=== PATIENT | female | born 1950 | race Caucasian/White ===

== ENCOUNTER 2017-11-26 18:50 | Inpatient (IN) | payer OTHER ==
[~2017-11-26] VITALS: Ht 157.5 cm; Wt 74.8 kg
[~2017-11-26 18:50] MED LIST: COZ50 PO; LOP50 PO; LOPRESSOR50 MG PO; MOTRIN800 MG PO; NOR5 PO; PRILOSEC20 MG PO; THERAGRAN-M1 TA4 PO
[2017-11-26 18:56] VITALS: Ht 157.5 cm; Wt 74.8 kg
[2017-11-26 20:33] LABS: BASOPHIL % 0.3 % (0-2); PLATELET COUNT 217 x10^3mcL (130-400); RED CELL DISTRIBUTION WIDTH 12.8 % (11.5-14.5)
[2017-11-26 20:40] LABS: CALCIUM 8.6 mg/dL (8.5-10.1); CARBON DIOXIDE 28.2 mmol/L (21-32); CHLORIDE SERUM 106 mmol/L (98-107); GLUCOSE SERUM 119 mg/dL (74-106); POTASSIUM SERUM 3.5 mmol/L (3.5-5.1); SODIUM SERUM 141 mmol/L (136-145)
[2017-11-26 20:44] LABS: ALKALINE PHOSPHATASE 68 U/L (46-116); ALT/SGPT 26 U/L (14-59); AST/SGOT 24 U/L (15-37); TOTAL PROTEIN, SERUM 6.7 g/dL (6.4-8.2)
[2017-11-26 20:50] LABS: ALBUMIN 3.3 g/dL (3.4-5.0)
[2017-11-26 21:18] LABS: CREATININE SERUM 0.7 mg/dL (0.6-1.0); GFR1 > 60 mL/min
[2017-11-26] MEDS ORDERED: LOSARTAN POTASS25 M1 PO (23:52)
[2017-11-26] MEDS ORDERED: METOPROLOL SUCC50 M2 PO (23:53)
[2017-11-27] VITALS (7 sets, daily range): BP systolic 137–176; BP diastolic 54–84
[2017-11-27 00:21] LABS: MAGNESIUM 2.2 mg/dL (1.8-2.4); PHOSPHOROUS 3.4 mg/dL (2.5-4.9)
[2017-11-27 00:33] LABS: FREE T4 0.81 ng/dL (0.76-1.46); FREE THYROXINE INDEX 2.7 ug/dL (1.4-4.5); T3 TOTAL 1.49 ng/mL; T4(THYROXINE) 7.7 ug/dL (4.7-13.3)
[2017-11-27 01:32] LABS: microscopic required? YES; urine erythrocyte TRACE (NEGATIVE)
[2017-11-27 01:44] LABS: AMPHETAMINE QUAL UR NONE DETECTED (See below)
[2017-11-27 06:18] LABS: BASOPHIL % 0.4 % (0-2); PLATELET COUNT 219 x10^3mcL (130-400); RED CELL DISTRIBUTION WIDTH 13.1 % (11.5-14.5)
[2017-11-27 06:35] LABS: CARBON DIOXIDE 24.5 mmol/L (21-32); CHLORIDE SERUM 107 mmol/L (98-107); GLUCOSE SERUM 123 mg/dL (74-106); HDL CHOLESTEROL 46 mg/dL (40-60); MAGNESIUM 2.1 mg/dL (1.8-2.4); PHOSPHOROUS 3.8 mg/dL (2.5-4.9); POTASSIUM SERUM 3.7 mmol/L (3.5-5.1); SODIUM SERUM 140 mmol/L (136-145)
[2017-11-27 06:55] LABS: CHOLESTEROL 162 mg/dL (<200); CHOLESTEROL/HDL RATIO 3.5; CREATININE SERUM 0.7 mg/dL (0.6-1.0); GFR1 > 60 mL/min; TRIGLYCERIDES 116 mg/dL (<150)
[2017-11-28 05:28] VITALS: BP 153/81
[2017-11-28 06:38] LABS: BASOPHIL % 0.5 % (0-2); PLATELET COUNT 225 x10^3mcL (130-400); RED CELL DISTRIBUTION WIDTH 12.9 % (11.5-14.5)
[2017-11-28 06:55] LABS: CALCIUM 8.7 mg/dL (8.5-10.1); CARBON DIOXIDE 25.1 mmol/L (21-32); CHLORIDE SERUM 108 mmol/L (98-107); CREATININE SERUM 0.7 mg/dL (0.6-1.0); GFR1 > 60 mL/min; GLUCOSE SERUM 104 mg/dL (74-106); MAGNESIUM 2.1 mg/dL (1.8-2.4); PHOSPHOROUS 4.3 mg/dL (2.5-4.9); POTASSIUM SERUM 4.2 mmol/L (3.5-5.1); SODIUM SERUM 141 mmol/L (136-145)
[2017-11-28] MEDS ORDERED: METOPROLOL SUCC50 M2 PO (08:21)
[2017-11-28] MEDS ORDERED: LOSARTAN POTASS25 M1 PO (08:22)
[2017-11-28 09:35] VITALS: BP 153/81
== END 2017-11-28 10:33 | disposition home or self-care (01) | DRG 305 ==
LOC: ED 18:50 → DU 23:23
PROVIDERS: Emergency Medicine; Family Medicine
DX: I16.0 Hypertensive urgency (principal); E44.1 Mild protein-calorie malnutrition; N13.30 Unspecified hydronephrosis; E11.65 Type 2 diabetes mellitus with hyperglycemia; G90.8 Other disorders of autonomic nervous system; E78.5 Hyperlipidemia, unspecified; E66.9 Obesity, unspecified; Z68.28 Body mass index [BMI] 28.0-28.9, adult
CPT/HCPCS: 82962; 83880; 84439; J0360; J8597; Q0092

== ENCOUNTER 2017-11-29 13:36 | Emergency (ER) | payer OTHER ==
[~2017-11-29] VITALS: Ht 162.6 cm; Wt 74.4 kg
[~2017-11-29 13:36] MED LIST changes: +LOSARTAN POTASS25 M1 PO; +METOPROLOL SUCC50 M2 PO
[2017-11-29 13:43] VITALS: Ht 162.6 cm; Wt 74.4 kg
[2017-11-29 16:52] VITALS: BP 121/58
== END 2017-11-29 16:52 | disposition home or self-care (01) ==
LOC: ED 13:36
DX: I10 Essential (primary) hypertension (principal); R42 Dizziness and giddiness; R51 Headache; Z88.8 Allergy status to other drugs, medicaments and biological substances
CPT/HCPCS: J1940

== ENCOUNTER 2017-12-01 22:01 | Emergency (ER) | payer OTHER ==
[~2017-12-01] VITALS: Ht 162.6 cm; Wt 73.9 kg
[2017-12-01 22:20] VITALS: Ht 162.6 cm; Wt 73.9 kg
[2017-12-01 23:00] LABS: BASOPHIL % 0.4 % (0-2); PLATELET COUNT 224 x10^3mcL (130-400); RED CELL DISTRIBUTION WIDTH 12.8 % (11.5-14.5)
[2017-12-01 23:12] LABS: CALCIUM 8.4 mg/dL (8.5-10.1); CHLORIDE SERUM 104 mmol/L (98-107); CREATININE SERUM 0.9 mg/dL (0.6-1.0); GFR1 > 60 mL/min; GLUCOSE SERUM 108 mg/dL (74-106); POTASSIUM SERUM 3.8 mmol/L (3.5-5.1); SODIUM SERUM 139 mmol/L (136-145)
[2017-12-01 23:16] LABS: ALBUMIN 3.5 g/dL (3.4-5.0); ALKALINE PHOSPHATASE 80 U/L (46-116); ALT/SGPT 28 U/L (14-59); AST/SGOT 20 U/L (15-37); BILIRUBIN TOTAL 0.4 mg/dL (0.20-1.00); TOTAL PROTEIN, SERUM 7.2 g/dL (6.4-8.2)
[2017-12-02 00:44] VITALS: BP 158/69
== END 2017-12-02 00:44 | disposition home or self-care (01) ==
LOC: ED 22:01
PROVIDERS: Emergency Medicine
DX: I16.0 Hypertensive urgency (principal); Z91.018 Allergy to other foods
CPT/HCPCS: 36415; 83880